=== PATIENT | female | born 1990 | race Caucasian/White ===

== ENCOUNTER → 2022-04-08 | Outpatient (CLI) | payer OTHER ==
[2022-04-08 10:45] LABS: BASOPHILS ABSOLUTE AUTO 0.08 K/mm3 (0.00-0.23); BASOPHILS PERCENT AUTO 1 % (0-2); EOSINOPHILS ABSOLUTE AUTO 0.27 K/mm3 (0.00-0.68); EOSINOPHILS PERCENT AUTO 3 % (0-6); Hematocrit 36.9 % (33.0-51.0); Hemoglobin 11.8 g/dL (11.5-16.0); IMMATURE GRAN ABSOLUTE AUTO 0.02 K/mm3 (0.00-0.10); IMMATURE GRAN PERCENT AUTO 0 % (0-1); LYMPHOCYTES ABSOLUTE AUTO 2.22 K/mm3 (0.84-5.20); LYMPHOCYTES PERCENT AUTO 22 % (21-46); MONOCYTES ABSOLUTE AUTO 0.83 K/mm3 (0.16-1.47); MONOCYTES PERCENT AUTO 8 % (4-13); Mean Corpuscular HGB 24.1 pg (26.0-34.0); Mean Corpuscular Volume 75 fL (80-100); Mean Platelet Volume 9.1 fL (9.1-12.4); NEUTROPHILS ABSOLUTE AUTO 6.85 K/mm3 (1.96-9.15); NEUTROPHILS PERCENT AUTO 67 % (41-73); Platelet Count 318 K/mm3 (150-400); RDW Coefficient Variation 15.2 % (11.7-14.2); RDW Standard Deviation 41.8 fL (35.1-46.3); White Blood Cell Count 10.27 K/mm3 (4.00-11.30)
[2022-04-08 10:55] LABS: Albumin, Blood 3.6 g/dL (3.4-5.0); Albumin/Globulin Ratio 0.8 (0.8-1.8); Bilirubin, Total 0.3 mg/dL (0.1-1.0); Bun/Creatinine Ratio 7.3 (12.0-20.0); Calcium, Blood 8.5 mg/dL (8.5-10.1); Creatinine, Blood 1.5 mg/dL (0.40-1.00); Globulin, Blood 4.3 g/dL (2.2-4.0); Potassium, Blood 3.8 mmol/L (3.5-5.5); Total Protein, Blood 7.9 g/dL (6.4-8.2)
[2022-04-08 12:37] LABS: Squamous Epithelial Cells Mod /hpf (Few)
[2022-04-08 12:38] LABS: Bacteria Few /hpf
== END | disposition home or self-care (01) ==
LOC: LAB SHORT 10:41
PROVIDERS: Physician Assistant
DX: R10.11 Right upper quadrant pain (principal); R82.79 Other abnormal findings on microbiological examination of urine
CPT/HCPCS: 80053; 81015; 83690; 85025; 87086

== ENCOUNTER → 2022-07-24 | Outpatient (CLI) | payer OTHER ==
[2022-08-02 16:10] LABS: BRUSHITE 0.43 ratio (0.00-3.00); CALCIUM OXALATE 1.24 ratio (0.00-6.00); CALCIUM, URINE 3.6 mg/dL (Not Estab.); CHLORIDE URINE 140 (38-210); CITRIC ACID (CITRATE) 494 mg/L (Not Estab.); CITRIC ACID(CITRATE) 741 mg/24 hr (320-1240); CREATININE, URINE 1471.5 mg/24 hr (800.0-1800.0); CREATININE, URINE 98.1 mg/dL (Not Estab.); MAGNESIUM, URINE 5.7 mg/dL (Not Estab.); MONOSODIUM URATE 5.07 ratio (0.00-4.00); OSMOLALITY, URINE 490 (300-900); SODIUM, URINE 112 mmol/L (Not Estab.); SODIUM, URINE 168 (39-258); STRUVITE 0.01 ratio (0.00-1.00); URIC ACID 1.14 ratio (0.00-1.20); URINE VOLUME 1500 mL/24 hr (600-1600); URINE VOLUME (PRESERVATIVE) 1500 mL/24 hr (600-1600)
== END ==
LOC: LAB SHORT 09:00 → LAB 09:00 → LAB FUT 06-13 16:00
PROVIDERS: Urology
DX: N20.0 Calculus of kidney (principal)
CPT/HCPCS: 81003; 82131; 82140; 82340; 82436; 82507; 82570; 83735; 83935; 83945; 84105; 84133; 84300; 84392; 84560

== ENCOUNTER → 2023-07-04 | Outpatient (CLI) | payer OTHER ==
[2023-07-04 18:40] LABS: BASOPHILS ABSOLUTE AUTO 0.09 K/mm3 (0.00-0.23); BASOPHILS PERCENT AUTO 1 % (0-2); EOSINOPHILS ABSOLUTE AUTO 0.04 K/mm3 (0.00-0.68); EOSINOPHILS PERCENT AUTO 0 % (0-6); Hematocrit 37.3 % (33.0-51.0); Hemoglobin 11.9 g/dL (11.5-16.0); IMMATURE GRAN ABSOLUTE AUTO 0.07 K/mm3 (0.00-0.10); IMMATURE GRAN PERCENT AUTO 0 % (0-1); LYMPHOCYTES ABSOLUTE AUTO 1.63 K/mm3 (0.84-5.20); LYMPHOCYTES PERCENT AUTO 9 % (21-46); MONOCYTES PERCENT AUTO 8 % (4-13); Mean Corpuscular HGB 22.3 pg (26.0-34.0); Mean Corpuscular HGB Conc 31.9 g/dL (31.5-36.5); Mean Corpuscular Volume 70 fL (80-100); Mean Platelet Volume 9.3 fL (9.1-12.4); NEUTROPHILS ABSOLUTE AUTO 15.71 K/mm3 (1.96-9.15); NEUTROPHILS PERCENT AUTO 82 % (41-73); Platelet Count 472 K/mm3 (150-400); RDW Standard Deviation 39.9 fL (35.1-46.3); Red Blood Cell Count 5.33 M/mm3 (3.80-5.20); White Blood Cell Count 19.04 K/mm3 (4.00-11.30)
[2023-07-04 19:04] LABS: Albumin, Blood 3.6 g/dL (3.4-5.0); Albumin/Globulin Ratio 0.8 (0.8-1.8); Bilirubin, Total 0.3 mg/dL (0.1-1.0); Bun/Creatinine Ratio 6.7 (12.0-20.0); Calcium, Blood 8.9 mg/dL (8.5-10.1); Creatinine, Blood 1.05 mg/dL (0.40-1.00); Globulin, Blood 4.7 g/dL (2.2-4.0); Potassium, Blood 3.5 mmol/L (3.5-5.5); Total Protein, Blood 8.3 g/dL (6.4-8.2)
== END | disposition home or self-care (01) ==
LOC: LAB SHORT 17:25
PROVIDERS: Family Medicine
DX: R50.9 Fever, unspecified (principal)
CPT/HCPCS: 80053; 85025

== ENCOUNTER → 2024-03-21 | Outpatient (CLI) | payer OTHER ==
[2024-03-21 19:31] LABS: BASOPHILS ABSOLUTE AUTO 0.11 K/mm3 (0.00-0.23); BASOPHILS PERCENT AUTO 1 % (0-2); EOSINOPHILS ABSOLUTE AUTO 0.24 K/mm3 (0.00-0.68); EOSINOPHILS PERCENT AUTO 3 % (0-6); Hematocrit 36.4 % (33.0-51.0); Hemoglobin 11.5 g/dL (11.5-16.0); IMMATURE GRAN ABSOLUTE AUTO 0.02 K/mm3 (0.00-0.10); IMMATURE GRAN PERCENT AUTO 0 % (0-1); LYMPHOCYTES ABSOLUTE AUTO 2.73 K/mm3 (0.84-5.20); LYMPHOCYTES PERCENT AUTO 29 % (21-46); MONOCYTES ABSOLUTE AUTO 0.89 K/mm3 (0.16-1.47); MONOCYTES PERCENT AUTO 10 % (4-13); Mean Corpuscular HGB 22.6 pg (26.0-34.0); Mean Corpuscular HGB Conc 31.6 g/dL (31.5-36.5); Mean Corpuscular Volume 72 fL (80-100); Mean Platelet Volume 10.2 fL (9.1-12.4); NEUTROPHILS ABSOLUTE AUTO 5.41 K/mm3 (1.96-9.15); NEUTROPHILS PERCENT AUTO 58 % (41-73); Platelet Count 397 K/mm3 (150-400); RDW Coefficient Variation 17.4 % (11.7-14.2); Red Blood Cell Count 5.09 M/mm3 (3.80-5.20)
[2024-03-21 19:51] LABS: Alanine Aminotransfer (ALT/SGP 24 U/L (12-78); Albumin, Blood 3.6 g/dL (3.4-5.0); Albumin/Globulin Ratio 0.8 (0.8-1.8); Alk Phos 78 U/L (50-136); Anion Gap 11 mmol/L (3-11); Aspartate Aminotrans (AST/SGOT 13 U/L (12-37); Bilirubin, Total 0.2 mg/dL (0.1-1.0); Blood Urea Nitrogen 11 mg/dL (8-24); Bun/Creatinine Ratio 12.9 (12.0-20.0); CO2, Blood 24 mmol/L (21-32); Calcium, Blood 9.3 mg/dL (8.5-10.1); Chloride, Blood 110 mmol/L (98-108); Cholesterol 178 mg/dL (50-200); Creatinine, Blood 0.85 mg/dL (0.40-1.00); Globulin, Blood 4.4 g/dL (2.2-4.0); Glomerular Filtration Rate 92 (60-); Glucose, Blood 97 mg/dL (70-99); HDL Cholesterol 44 mg/dL (>39); LDL/HDL RATIO 2.2; Low Density Lipoprotein Chol 98 mg/dL (0-110); Potassium, Blood 3.5 mmol/L (3.5-5.5); Sodium, Blood 141 mmol/L (136-145); Triglycerides 178 mg/dL (30-140); Very Low Density Lipoprot Chol 35 mg/dL (6-28)
== END ==
LOC: LAB 18:42 → LAB SHORT 18:42
PROVIDERS: Family Medicine
DX: E66.01 Morbid (severe) obesity due to excess calories (principal)
CPT/HCPCS: 80053; 80061; 84443; 85025

== ENCOUNTER → 2024-03-28 | Outpatient (CLI) | payer OTHER ==
[2024-03-28 19:46] LABS: Percent Saturation 6.8 % (15.0-50.0); Prolactin 12.3 ng/mL
[2024-03-29 09:04] LABS: Candida Group, PCR NOT DETECTED (NOT DETECT); Candida glabrata-krusei, PCR NOT DETECTED (NOT DETECT)
[2024-03-29 09:46] LABS: Bacterial Vaginosis PCR Positive (NEGATIVE)
[2024-03-31 10:36] LABS: DHEAS 157 ug/dL (99-340)
[2024-04-03 09:11] LABS: 17-HYDROXYPROGESTERONE 18.11 ng/dL (<=206.00)
[2024-04-03 14:17] LABS: TESTOSTERONE BY MASS SPEC 15 ng/dL (9-55)
== END ==
LOC: LAB 17:06 → LAB SHORT 17:06
PROVIDERS: General Practice
DX: E28.2 Polycystic ovarian syndrome (principal); N89.8 Other specified noninflammatory disorders of vagina; R53.83 Other fatigue; R79.89 Other specified abnormal findings of blood chemistry
CPT/HCPCS: 82306; 82627; 82728; 83036; 83498; 83540; 83550; 84146; 84403; 87481; 87661; 87801

== ENCOUNTER → 2024-04-24 | Outpatient (CLI) | payer BC, OTHER ==
[2024-04-25 11:40] LABS: Candida glabrata-krusei, PCR NOT DETECTED (NOT DETECT)
[2024-04-25 11:41] LABS: Bacterial Vaginosis PCR Positive (NEGATIVE); Candida Group, PCR DETECTED (NOT DETECT)
== END ==
LOC: LAB 15:59 → LAB SHORT 15:59
PROVIDERS: General Practice
DX: N89.8 Other specified noninflammatory disorders of vagina (principal)
CPT/HCPCS: 87481; 87661; 87801

== ENCOUNTER → 2024-09-03 | Outpatient (CLI) | payer BC, OTHER | LOC: LAB SHORT 07:50 → LAB 07:50 | DX: N80.03 Adenomyosis of the uterus (principal) | CPT/HCPCS: 88305 ==

== ENCOUNTER 2024-11-17 12:28 | Day surgery (SDC) | payer BC, OTHER ==
[2024-11-17] VITALS (15 sets, daily range): BP systolic 111–148; BP diastolic 62–91
[~2024-11-17] VITALS: Ht 152.4 cm; Wt 110.0 kg
[~2024-11-17 12:28] MED LIST: ALBU90OI INH; Dexamethasone Sod Phos 10 MG/ML 1ML VIAL ONE; FentaNYL Citrate 50 MCG/ML 5 ML Injection ONE; Ketorolac Tromethamine 30mg Vial ONE; Ondansetron HCl 2 MG / ML 2ML Vial ONE; Rocuronium Bromide 10 MG/ML 5ML Injection IV ONE; VYVANSE40 MG PO
[2024-11-17] MEDS ORDERED: CeFAZolin Sodium 3,000 MG in NS 100 ML IV SCH (12:50)
[2024-11-17] MEDS ORDERED: Labetalol HCL 5 MG/ML 4ML Injection (Single Dose) IV PRN (13:00)
[2024-11-17] MEDS ORDERED: FentaNYL Citrate 50 MCG/ML 2 ML Injection IV PRN ×3 (13:05→18:25)
[2024-11-17] MEDS ORDERED: Albuterol 2.5 MG/3 ML VIAL INH PRN (13:05)
[2024-11-17] MEDS ORDERED: Metoclopramide HCl 5MG / ML 2ML Vial IV PRN (13:05)
[2024-11-17] MEDS ORDERED: HYDROmorphone HCl/Pf 1MG SYR IV PRN ×2 (13:05→13:10)
[2024-11-17] MEDS ORDERED: Ondansetron HCl 2 MG / ML 2ML Vial IV PRN ×2 (13:05→18:30)
[2024-11-17] MEDS ORDERED: CeFAZolin Sodium 2,000 MG in NS 100 ML IV SCH (13:20)
--- NOTE | 2024-11-17 13:23 | NUR ---
Ambulatory in Day Surgery WITH STEADY GAIT. ABLE TO USE RESTROOM INDEPENDENTLY. History, Chart, Medications and Allergies reviewed before start of procedure. Pre-Op teaching done. Pt verbalizes understanding. Patient States Post-Procedure ride home has been arranged WITH PARTNER JANESSA. BELONGINGS PLACED UNDER GURN. CELL PHONE GIVEN TO PARTNER JANESSA.
[2024-11-17] MEDS ORDERED: Bupivacaine 0.25% Epi 1:200000 30 ML Vial ONE (14:40)
[2024-11-17] MEDS ORDERED: Sugammadex Sodium 200 MG/2ML SDV (100 MG/ML) ONE (17:42)
[2024-11-17] MEDS ORDERED: Ketorolac Tromethamine 30mg Vial IV PRN (18:30)
[2024-11-17] MEDS ORDERED: FentaNYL Citrate 50 MCG/ML 2 ML Injection ONE (18:37)
[2024-11-18] MEDS ORDERED: IBU800 M1 PO (02:30)
[2024-11-18] MEDS ORDERED: OXYC5 PO (02:30)
[2024-11-18 04:14] VITALS: BP 103/57
--- NOTE | 2024-11-18 04:58 | NUR ---
SHIFT SUMMARY NO ACUTE EVENTS OVERNIGHT; PT POD #1 ROBOTIC LAP HYSTERECTOMY. PT AMBULATED, TOLERATED FOOD AND PO MEDS, VOIDED.
[2024-11-18 07:14] VITALS: BP 119/79
--- NOTE | 2024-11-18 09:19 | NUR ---
DISCHARGE EATING, DRINKING, & VOIDING WELL. PAIN WELL CONTROLLED. SHOWERED, DRESSED, & FEELS READY FOR DC. ESCORTED OUT VIA WC.
== END 2024-11-18 09:16 | disposition home or self-care (01) ==
LOC: ORSCMMR 12:28 → ORD 14:00 → SURS 18:29 → ORSCMMR 11-18 09:16 → ORD 11-24 10:45
PROVIDERS: Obstetrics & Gynecology
PROC: 0UT9FZZ Resection of Uterus, Via Natural or Artificial Opening With Percutaneous Endoscopic Assistance (ICD-10-PCS; principal; 2024-11-17 14:00)
DX: N92.0 Excessive and frequent menstruation with regular cycle (principal); N80.03 Adenomyosis of the uterus; N73.6 Female pelvic peritoneal adhesions (postinfective); N94.6 Dysmenorrhea, unspecified; J45.909 Unspecified asthma, uncomplicated; F17.210 Nicotine dependence, cigarettes, uncomplicated; E66.01 Morbid (severe) obesity due to excess calories; Z68.42 Body mass index [BMI] 45.0-49.9, adult; Z79.899 Other long term (current) drug therapy
CPT/HCPCS: 86850; 86900; 86901; 88307; A9270; J0690; J1100; J1885; J2405; J2704; J3010; J7120

== ENCOUNTER → 2025-03-18 | Outpatient (CLI) | payer BC ==
[~2025-03-18] MED LIST changes: -Dexamethasone Sod Phos 10 MG/ML 1ML VIAL ONE; -FentaNYL Citrate 50 MCG/ML 5 ML Injection ONE; +IBU800 M1 PO; -Ketorolac Tromethamine 30mg Vial ONE; +OXYC5 PO; -Ondansetron HCl 2 MG / ML 2ML Vial ONE; -Rocuronium Bromide 10 MG/ML 5ML Injection IV ONE
[2025-03-18 11:52] LABS: BASOPHILS ABSOLUTE AUTO 0.08 K/mm3 (0.00-0.23); BASOPHILS PERCENT AUTO 1 % (0-2); EOSINOPHILS ABSOLUTE AUTO 0.17 K/mm3 (0.00-0.68); EOSINOPHILS PERCENT AUTO 2 % (0-6); Hematocrit 40.5 % (33.0-51.0); Hemoglobin 13.0 g/dL (11.5-16.0); IMMATURE GRAN ABSOLUTE AUTO 0.02 K/mm3 (0.00-0.10); IMMATURE GRAN PERCENT AUTO 0 % (0-1); LYMPHOCYTES ABSOLUTE AUTO 1.84 K/mm3 (0.84-5.20); LYMPHOCYTES PERCENT AUTO 25 % (21-46); MONOCYTES ABSOLUTE AUTO 0.53 K/mm3 (0.16-1.47); MONOCYTES PERCENT AUTO 7 % (4-13); Mean Corpuscular HGB Conc 32.1 g/dL (31.5-36.5); Mean Corpuscular Volume 79 fL (80-100); NEUTROPHILS ABSOLUTE AUTO 4.61 K/mm3 (1.96-9.15); NEUTROPHILS PERCENT AUTO 64 % (41-73); NRBC ABSOLUTE 0.00 K/mm3 (0.00-0.02); NRBC Auto 0.0 /100 WBC (0.0-0.2); Platelet Count 336 K/mm3 (150-400); RDW Coefficient Variation 15.0 % (11.7-14.2); RDW Standard Deviation 43.3 fL (35.1-46.3)
[2025-03-18 12:50] LABS: Alanine Aminotransfer (ALT/SGP 26.0 U/L (12-78); Albumin, Blood 3.6 g/dL (3.4-5.0); Albumin/Globulin Ratio 0.9 (0.8-1.8); Anion Gap 6.0 mmol/L (3-11); Aspartate Aminotrans (AST/SGOT 12.0 U/L (12-37); Bilirubin, Total 0.3 mg/dL (0.1-1.0); Blood Urea Nitrogen 11.0 mg/dL (8-24); CO2, Blood 28.0 mmol/L (21-32); Calcium, Blood 8.7 mg/dL (8.5-10.1); Chloride, Blood 108.0 mmol/L (98-108); Creatinine, Blood 0.9 mg/dL (0.40-1.00); Ferritin, Serum 32.0 ng/mL (8-252); Globulin, Blood 3.9 g/dL (2.2-4.0); Glucose, Blood 102.0 mg/dL (70-99); Potassium, Blood 3.8 mmol/L (3.5-5.5); Sodium, Blood 138.0 mmol/L (136-145); Total Iron Binding Capacity 337.0 ug/dL (250-450); Total Protein, Blood 7.5 g/dL (6.4-8.2)
== END ==
LOC: LAB SHORT 09:25 → LAB 09:25
PROVIDERS: Family Medicine
DX: R73.03 Prediabetes (principal); E66.01 Morbid (severe) obesity due to excess calories
CPT/HCPCS: 80053; 82728; 83036; 83540; 83550; 85025